=== PATIENT | male | born 1970 | race African-American/Black ===

== ENCOUNTER 2016-12-12 09:47 | Observation (INO) | payer MEDICAID ==
--- NOTE | 2016-12-12 10:09 | ER Document Report ---
ED Medical Screen (RME) - General Stated Complaint: WEAKNESS Notes: patient states that he had a syncope episode yesterday states he had a "blackout" episode yesterday, he was told he was unresponsive, urinating on himself denies previous episodes, no h/o seizure d/o I have greeted and performed a rapid initial assessment of this patient. A comprehensive ED assessment and evaluation of the patient, analysis of test results and completion of the medical decision making process will be conducted by additional ED providers. TRAVEL OUTSIDE OF THE [place] IN LAST 30 DAYS: No - Related Data Allergies/Adverse Reactions: No Known Allergies Allergy (Verified 10/30/13 13:29) Past Medical History Past Surgical History: Reports: Hx Appendectomy - Immunizations Hx Diphtheria, Pertussis, Tetanus Vaccination: Yes Physical Exam - Vital signs Vitals: Temp Pulse Resp BP Pulse Ox 98.2 F 78 16 112/64 99 12/12/16 10:04 12/12/16 10:04 12/12/16 10:04 12/12/16 10:04 12/12/16 10:04 Course - Vital Signs Vital signs: Temp Pulse Resp BP Pulse Ox 98.2 F 78 16 112/64 99 12/12/16 10:04 12/12/16 10:04 12/12/16 10:04 12/12/16 10:04 12/12/16 10:04
[2016-12-12 10:38] LABS: ABSOLUTE EOSINOPHILS # (AUTO) 0.1 10^3/uL (0.0-0.6); ABSOLUTE LYMPHOCYTES (AUTO) 0.9 10^3/uL (0.5-4.7); ABSOLUTE MONOCYTES (AUTO) 0.5 10^3/uL (0.1-1.4); ABSOLUTE NEUT (AUTO) 1.9 10^3/uL (1.7-8.2); BASOPHILS % (AUTO) 1.2 % (0-2); EOSINOPHILS % (AUTO) 2.1 % (0-6); HEMATOCRIT 38.3 % (37.9-51.0); HEMOGLOBIN 12.7 g/dL (13.5-17.0); HGB HCT DIFFERENCE -0.2; LYMPHOCYTES % (AUTO) 28.1 % (13-45); MEAN CORPUSCULAR HEMOGLOBIN 30.7 pg (27.0-33.4); MEAN CORPUSCULAR VOLUME 93 fl (80-97); MONOCYTES % (AUTO) 13.6 % (3-13); RED BLOOD COUNT 4.12 10^6/uL (4.35-5.55); RED CELL DISTRIBUTION WIDTH 13.7 % (11.5-14.0); WHITE BLOOD COUNT 3.4 10^3/uL (4.0-10.5)
[2016-12-12 11:03] LABS: ALANINE AMINOTRANSFERASE 35 U/L (21-72); ALBUMIN 3.5 g/dL (3.5-5.0); ALCOHOL 14 mg/dL (NONE DETECTED); ALKALINE PHOSPHATASE 69 U/L (38-126); ANION GAP 10 (5-19); ASPARTATE AMINO TRANSFERASE 36 U/L (17-59); BILIRUBIN,TOTAL 0.5 mg/dL (0.2-1.3); BLOOD UREA NITROGEN 10 mg/dL (7-20); CALCIUM 8.9 mg/dL (8.4-10.2); CARBON DIOXIDE 23 mmol/L (22-30); CHLORIDE 105 mmol/L (98-107); CREATINE KINASE 134 U/L (55-170); CREATININE RESULT 0.79 mg/dL (0.52-1.25); GLUCOSE 102 mg/dL (75-110); POTASSIUM 3.9 mmol/L (3.6-5.0); SODIUM 137.6 mmol/L (137-145); TOTAL PROTEIN 5.9 g/dL (6.3-8.2)
--- NOTE | 2016-12-12 11:06 | ER Document Report ---
ED General - General Time seen by provider: 11:06 TRAVEL OUTSIDE OF THE [place] IN LAST 30 DAYS: No <ADIEL LAWRENCE - Last Filed: 12/12/16 12:33> <BARBARA SILVESTRE - Last Filed: 12/12/16 21:16> - General Chief Complaint: Probable Seizure Stated Complaint: WEAKNESS - Related Data Allergies/Adverse Reactions: No Known Allergies Allergy (Verified 12/12/16 10:07) Past Medical History - Social History Smoking Status: Never Smoker Chew tobacco use (# tins/day): No Frequency of alcohol use: Heavy Drug Abuse: None Family History: Reviewed & Not Pertinent Patient has suicidal ideation: No Patient has homicidal ideation: No Renal/ Medical History: Denies: Hx Peritoneal Dialysis Psychiatric Medical History: Reports: Hx Depression Past Surgical History: Reports: Hx Appendectomy, Hx Orthopedic Surgery - left hip replacement - Immunizations Hx Diphtheria, Pertussis, Tetanus Vaccination: Yes <ADIEL LAWRENCE - Last Filed: 12/12/16 12:33> Course - Laboratory Result Diagrams: 12/12/16 10:15 12/12/16 10:15 <ADIEL LAWRENCE - Last Filed: 12/12/16 12:33> - Laboratory Result Diagrams: 12/12/16 10:15 12/12/16 10:15 <BARBARA SILVESTRE - Last Filed: 12/12/16 21:16> - Re-evaluation Re-evalutation: 12/12/16 12:32 I have consulted with the supervisory physician per [facility] Guidelines. Consult Dr. brewer who will admit to telemetry observation for syncope ( ADIEL LAWRENCE) 12/12/16 21:15 I have seen the patient and discussed the case with the mid-level provider. I agree with the plan for admission with observation for syncope. (BARBARA SILVESTRE) - Vital Signs Vital signs: Temp Pulse Resp BP Pulse Ox 98.6 F 76 20 129/80 H 98 12/12/16 16:23 12/12/16 16:42 12/12/16 16:23 12/12/16 16:00 12/12/16 16:23 (ADIEL LAWRENCE) (BARBARA SILVESTRE) - Laboratory Laboratory results interpreted by me: 12/12/16 12/12/16 10:15 10:15 WBC 3.4 L RBC 4.12 L Hgb 12.7 L Monocytes % 13.6 H Total Protein 5.9 L (ADIEL LAWRENCE) (BARBARA SILVESTRE) Discharge - Discharge Admitting Provider: Hospitalist Unit Admitted: Telemetry <ADIEL LAWRENCE - Last Filed: 12/12/16 12:33> <BARBARA SILVESTRE - Last Filed: 12/12/16 21:16> - Discharge Clinical Impression: Episode of syncope Qualifiers: Syncope type: unspecified Qualified Code(s): R55 - Syncope and collapse
[2016-12-12 11:13] LABS: CREATINE KINASE MB 0.94 ng/mL (<4.55); TROPONIN I < 0.012 ng/mL
[2016-12-12 12:03] LABS: URINE BARBITURATES SCREEN NEGATIVE; URINE METHADONE SCREEN NEGATIVE; URINE OPIATES LOW UNCONFIRMED POSITIVE; URINE PHENCYCLIDINE SCREEN NEGATIVE
[2016-12-12] MEDS ORDERED: ONDANSETRON HCL INJ/PF 4 MG/2 ML SDV IV PRN (14:48)
[2016-12-12] MEDS ORDERED: ACETAMINOPHEN 325 MG TABLET PO PRN (14:48)
[2016-12-12] MEDS ORDERED: LORAZEPAM INJ 2 MG/1 ML VIAL IV PRN (14:52)
--- NOTE | 2016-12-12 15:05 | PDOC H&P ---
History of Present Illness Admission Date/PCP: 12/12/16 12:43 FIDENCIO NICHOLAS MD Patient complains of: Syncopal episode History of Present Illness: ANTHONY DE LA TORRE is a 46 year old male, with history of heavy alcohol use, recently diagnosed with depression, started on Wellbutrin was brought to the emergency room because of the syncopal episode. Apparently the patient was just watching television when the patient started to feel uneasy. Patient reports there is blurring of vision and eventual blacking out. Patient does not remember what happened since then. Witnessed by a friend decided then, patient reportedly weighed upward rolling of the eyeballs, foaming of the mouth , urinary incontinence, and generalized shaking. No prior history of syncope nor seizure. Last intake of alcohol was early this morning. Patient had a mild headache prior to the episode otherwise no slurring of speech, swallowing difficulty, or focal weakness. The patient was then referred for admission. Past Medical History Musculoskeltal Medical History: Reports: Other - Avascular necrosis of the hip Psychiatric Medical History: Reports: Depression Past Surgical History Past Surgical History: Reports: Appendectomy, Orthopedic Surgery - left hip replacement Social History Information Source: Patient Smoking Status: Current Every Day Smoker Frequency of Alcohol Use: Heavy Hx Recreational Drug Use: Yes Drugs: Marijuana Family History Family History: DM Parental Family History Reviewed: Yes Children Family History Reviewed: Yes Sibling(s) Family History Reviewed.: Yes Medication/Allergy Home Medications: Bupropion HCl [Wellbutrin 100 mg Tablet] 100 mg PO BID 12/12/16 Meloxicam [Mobic 7.5 mg Tablet] 7.5 mg PO DAILY 12/12/16 Allergies/Adverse Reactions: No Known Allergies Allergy (Verified 12/12/16 10:07) Review of Systems Constitutional: PRESENT: headache(s). ABSENT: chills, fever(s), night sweats, weight gain, weight loss Eyes: ABSENT: visual disturbances Ears: ABSENT: hearing changes Nose, Mouth, and Throat: ABSENT: mouth pain, sore throat Cardiovascular: ABSENT: chest pain, dyspnea on exertion, edema, orthropnea, palpitations Respiratory: ABSENT: cough, hemoptysis, sputum Gastrointestinal: ABSENT: abdominal pain, constipation, diarrhea, hematemesis, hematochezia, melena, nausea, vomiting Genitourinary: ABSENT: dysuria, hematuria Musculoskeletal: ABSENT: joint swelling Integumentary: ABSENT: pruritus, rash, wounds Neurological: PRESENT: syncope. ABSENT: abnormal gait, abnormal speech, confusion, dizziness, focal weakness, restless legs Psychiatric: PRESENT: depression. ABSENT: anxiety, homidical ideation, suicidal ideation Endocrine: ABSENT: cold intolerance, heat intolerance, polydipsia, polyphagia, polyuria Hematologic/Lymphatic: ABSENT: easy bleeding, easy bruising Physical Exam Vital Signs: Temp Pulse Resp BP Pulse Ox 98.6 F 78 20 116/74 99 12/12/16 14:12 12/12/16 10:04 12/12/16 14:12 12/12/16 14:12 12/12/16 14:12 General appearance: PRESENT: no acute distress, cooperative, well-developed, well-nourished Head exam: PRESENT: atraumatic, normocephalic Eye exam: PRESENT: conjunctiva pink, EOMI, PERRLA. ABSENT: scleral icterus Ear exam: PRESENT: normal external ear exam. ABSENT: drainage Mouth exam: PRESENT: moist, neck supple, tongue midline Throat exam: PRESENT: other - No tongue laceration. ABSENT: post pharyngeal erythema, tonsillar erythema Neck exam: ABSENT: carotid bruit, JVD, lymphadenopathy, thyromegaly Respiratory exam: PRESENT: clear to auscultation torsten. ABSENT: rales, rhonchi, unlabored, wheezes Cardiovascular exam: PRESENT: RRR, +S1, +S2. ABSENT: diastolic murmur, rubs, systolic murmur Pulses: PRESENT: normal dorsalis pedis pul Vascular exam: PRESENT: normal capillary refill GI/Abdominal exam: PRESENT: normal bowel sounds, soft. ABSENT: distended, guarding, mass, organolmegaly, rebound, tenderness Rectal exam: PRESENT: deferred Extremities exam: PRESENT: full ROM. ABSENT: calf tenderness, clubbing, pedal edema Neurological exam: PRESENT: alert, awake, oriented to person, oriented to place , oriented to time, oriented to situation, CN II-XII grossly intact. ABSENT: motor sensory deficit Psychiatric exam: PRESENT: appropriate affect, normal mood. ABSENT: homicidal ideation, suicidal ideation Skin exam: PRESENT: dry, intact, warm. ABSENT: cyanosis, rash Results Impressions: Head CT 12/12/16 10:09 IMPRESSION: NORMAL BRAIN CT WITHOUT CONTRAST. Assessment & Plan - Diagnosis (1) Seizure Is this a current diagnosis for this admission?: Yes (2) Abnormal EKG Is this a current diagnosis for this admission?: Yes (3) Alcohol abuse Is this a current diagnosis for this admission?: Yes (4) Depression Qualifiers: Depression Type: unspecified Qualified Code(s): F32.9 - Major depressive disorder, single episode, unspecified Is this a current diagnosis for this admission?: Yes - Time Time Spent: 50 to 70 Minutes Within: within 24 hours - Plan Summary Plan Summary: The patient will be placed in observation. We will monitor the patient probably developed symptoms from alcohol. I will leave as needed Ativan for seizures. I will hydrate the patient with normal saline and give supplemental thiamine and folic acid, and multivitamin. We will obtain EEG and MRI of the brain. In the meantime EKG shows abnormality but patient denies any chest pain. I will put the patient on aspirin. We will serially monitor cardiac enzymes. If negative stress test can be done on an outpatient basis. Further testing depends on the initial evaluation as outlined above.
[2016-12-12] MEDS ORDERED: ASPIRIN 81 MG TABLET, CHEWABLE PO ONE (15:15)
[2016-12-12] MEDS: NORMAL SALINE 1000 ML 1,000 ML IV PRN (15:23)
[2016-12-12] MEDS ORDERED: NORMAL SALINE 1000 ML 1,000 ML with POTASSIUM CHLORIDE 20 MEQ, MAGNESIUM SULFATE 8 MEQ,... IV PRN ×5 (18:00)
[2016-12-12] MEDS: DOCUSATE SODIUM 100 MG CAPSULE PO SCH (19:35)
--- NOTE | 2016-12-13 00:07 | EKG REPORT ---
SEVERITY:- ABNORMAL ECG - SINUS RHYTHM NONSPECIFIC T ABNORMALITIES, INFERIOR LEADS : Confirmed by: Kaylee Bui 13-Dec-2016 00:06:53
--- NOTE | 2016-12-13 00:07 | EKG REPORT ---
SEVERITY:- NORMAL ECG - SINUS RHYTHM : Confirmed by: Kaylee Bui 13-Dec-2016 00:06:42
[2016-12-13 04:37] LABS: BLOOD UREA NITROGEN 8 mg/dL (7-20); CALCIUM 8.7 mg/dL (8.4-10.2); CHLORIDE 108 mmol/L (98-107); CREATININE RESULT 0.83 mg/dL (0.52-1.25); GLUCOSE 103 mg/dL (75-110); POTASSIUM 4.5 mmol/L (3.6-5.0)
[2016-12-13 04:48] LABS: ANION GAP 6 (5-19); CARBON DIOXIDE 27 mmol/L (22-30); SODIUM 141.1 mmol/L (137-145)
[2016-12-13] MEDS ORDERED: LANSOPRAZOLE 30 MG TAB.RAP.DR PO SCH (06:00)
[2016-12-13] MEDS ORDERED: ENOXAPARIN SODIUM INJ 40 MG/0.4 ML DISP.SYRIN SUBCUT SCH (08:00)
[2016-12-13] MEDS: DOCUSATE SODIUM 100 MG CAPSULE PO SCH (09:40)
[2016-12-13] MEDS ORDERED: ASPIRIN 81 MG TABLET, CHEWABLE PO SCH (10:00)
--- NOTE | 2016-12-13 11:01 | EKG REPORT ---
SEVERITY:- NORMAL ECG - SINUS RHYTHM : Confirmed by: Kaylee Bui 13-Dec-2016 11:01:19
[2016-12-13] MEDS: NORMAL SALINE 1000 ML 1,000 ML IV PRN (11:30)
--- NOTE | 2016-12-13 14:03 | PDOC DISCHARGE SUMMARY ---
General - Admit/Disc Date/PCP Admission Date/Primary Care Provider: 12/12/16 14:48 FIDENCIO NICHOLAS MD Discharge Date: 12/13/16 - Discharge Diagnosis (1) Seizure Is this a current diagnosis for this admission?: YesSummary: Patient had a syncopal episode and then a seizure. The patient been about 24 hours without any alcohol. The patient had normal MRI it's felt the seizure was most likely alcohol withdrawal related. The patient was reported that he had started Wellbutrin however he reports he has the prescription but has not yet started the medication. He is instructed to hold his Wellbutrin until he discusses it with his primary care doctor. The patient had an EEG done the results of which are pending at the time of this dictation. He's had only one seizure and no further abnormalities and is felt stable for discharge to home. (2) Alcohol abuse Is this a current diagnosis for this admission?: YesSummary: Patient is given Ativan to use when necessary. He is encouraged to stop drinking. (3) Depression Is this a current diagnosis for this admission?: YesSummary: Patient denies any suicidal ideations. He is instructed to hold his Wellbutrin and not take it until after he discuss with his primary care doctor in light of his seizure. (4) Episode of syncope Is this a current diagnosis for this admission?: YesSummary: This most likely is related to his seizure activity. MRI was unremarkable. - Additional Information Resuscitation Status: Full Code Discharge Diet: Regular Discharge Activity: Activity As Tolerated Home Medications: Meloxicam [Mobic 7.5 mg Tablet] 7.5 mg PO DAILY 12/12/16 Aspirin [Aspirin 81 mg Chewable Tablet] 81 mg PO DAILY tab.chew 12/13/16 Lorazepam 1 mg PO Q6HP PRN #30 tablet 12/13/16 History of Present Illness History of Present Illness: ANTHONY DE LA TORRE is a 46 year old male who is followed at the [place] who is being treated for depression. He was given a prescription for Wellbutrin but has not yet had it filled. The patient was sitting on the couch with his significant other and he became unresponsive and then had tonic-clonic movements along with urinary incontinence. Patient was transported the hospital for further evaluation. Hospital Course Hospital Course: Patient was admitted with what sounds like a seizure. Patient was about 24 hours after his last drink. He does drink alcohol heavily. He said no further seizure activity and no evidence for delirium tremens. He has been given Ativan when necessary. The patient had an MRI of the brain which was unremarkable. He has an EEG the results of which are pending at the time of this dictation. It is assumed that his seizure was alcohol related with alcohol withdrawal. He is instructed to quit drinking and take Ativan as needed. The patient was reportedly taking Wellbutrin have reports he was given the prescription but has not yet started the medications. I instructed him to continue to hold off on taking that medication until he can discuss it further with his primary care doctor. The patient had an EKG initially showed some nonspecific T-wave changes in inferior leads and was concerned this may represent an acute cardiac event however the patient has never had any chest pain and had negative cardiac enzymes. He is instructed to take an aspirin daily. Physical Exam Vital Signs: Temp Pulse Resp BP Pulse Ox 97.7 F 62 18 103/66 100 12/13/16 08:35 12/13/16 08:08 12/13/16 03:45 12/13/16 08:08 12/13/16 08:08 Intake & Output 12/12/16 12/13/16 12/14/16 06:59 06:59 06:59 Intake Total 200 Balance 200 Weight 57.5 kg General appearance: PRESENT: no acute distress Eye exam: PRESENT: conjunctiva pink. ABSENT: scleral icterus Ear exam: PRESENT: normal external ear exam Mouth exam: PRESENT: moist, tongue midline Neck exam: ABSENT: carotid bruit, JVD, lymphadenopathy, thyromegaly Respiratory exam: PRESENT: clear to auscultation torsten. ABSENT: rales, rhonchi, wheezes Cardiovascular exam: PRESENT: RRR. ABSENT: diastolic murmur, rubs, systolic murmur GI/Abdominal exam: PRESENT: normal bowel sounds, soft. ABSENT: distended, guarding, mass, organolmegaly, rebound, tenderness Extremities exam: ABSENT: calf tenderness, clubbing, pedal edema Neurological exam: PRESENT: alert, awake, oriented to person, oriented to place , oriented to time, oriented to situation, CN II-XII grossly intact. ABSENT: motor sensory deficit Psychiatric exam: PRESENT: appropriate affect Skin exam: PRESENT: dry, intact, warm. ABSENT: cyanosis, rash Results Laboratory Results: 12/13/16 04:10 12/13/16 04:10 Sodium 141.1 Potassium 4.5 Chloride 108 H Carbon Dioxide 27 Anion Gap 6 BUN 8 Creatinine 0.83 Est GFR ( Amer) > 60 Est GFR (Non-Af Amer) > 60 Glucose 103 Calcium 8.7 12/12/16 12/12/16 12/12/16 16:05 16:05 22:09 Creatine Kinase 96 101 Troponin I < 0.012 12/12/16 12/13/16 12/13/16 22:09 04:10 04:10 Creatine Kinase 81 Troponin I < 0.012 < 0.012 Impressions: Head MRI 12/12/16 00:00 IMPRESSION: NORMAL MRI OF THE BRAIN WITHOUT INTRAVENOUS GADOLINIUM CONTRAST. Head CT 12/12/16 10:09 IMPRESSION: NORMAL BRAIN CT WITHOUT CONTRAST. Qualifiers PATEINT BEING DISCHARGED WITH ANY OF THE FOLLOWING DIAGNOSIS?: No Plan Discharge Plan: Discharged to home. Patient will follow-up with his primary care doctor in 1-2 weeks. Time Spent: Less than 30 Minutes
[2016-12-13 14:33] VITALS: BP 108/70
--- NOTE | 2016-12-19 07:41 | EEG PRO FEE REPORT ---
EEG INTERPRETATION PATIENT NAME: ANTHONY DE LA TORRE ROOM#: [id number] ORDER#: [id number] DATE OF STUDY: 12/13/16 : 1970 REFERRING MD: GRACIELA BENZ M.D. DIAGNOSIS: Seizures MEDICATIONS: Unknown REPORT This is a 16 channel EEG recording with a channel of EKG. This is done during wakefulness, photic stimulation, and early stages of sleep. Severe artifact seen due to patient's lack of cooperation. The background activity is 7.5-8 cycles per second, well formed and reactive alpha best seen in the posterior electrodes along with beta 18-22 cycles per second, intermittent, nonlocalized or sustained slower forms. Photic stimulation did not alter the tracing significantly. In the early stages of sleep, more generalized slowing is seen. IMPRESSION This EEG contains severe artifact due to lack of cooperation from the patient. However, no epileptiform discharge is seen. INTERPRETING PHYSICIAN: TARA LEAVITT M.D. /: [facility] TT: [id number] ID: [id number] /: [id number] TD: [id number] JOB: [id number] cc:Purvi MARIA M.D. >
== END 2016-12-13 15:38 | disposition home or self-care (01) ==
LOC: ER 09:47 → UNDOADMOB 12:43 → EH 12:43 → 4S 16:38
DX: G40.909 Epilepsy, unspecified, not intractable, without status epilepticus (principal); R55 Syncope and collapse; F10.10 Alcohol abuse, uncomplicated; F32.9 Major depressive disorder, single episode, unspecified; F17.210 Nicotine dependence, cigarettes, uncomplicated; M87.9 Osteonecrosis, unspecified; Z96.642 Presence of left artificial hip joint; R94.31 Abnormal electrocardiogram [ECG] [EKG]; Z83.3 Family history of diabetes mellitus; Z79.899 Other long term (current) drug therapy; Z79.82 Long term (current) use of aspirin
CPT/HCPCS: 95819; 93005 ×2; 99285; 36415 ×2; 82553; 80307 ×2; 82550 ×2; 85025; 80048; 80053; 84484 ×2; 70551; 70450; 93010 ×2; G0378 ×3; J3490 ×3; J3475; J3480; J3411; J7030 ×2

== ENCOUNTER 2017-01-21 03:00 | Emergency (ER) | payer MEDICAID ==
[2017-01-21] MEDS ORDERED: LIDOCAINE 5% (700 MG) TRANSDERMAL ADH..PATCH TP ONE (07:15)
[2017-01-21] MEDS ORDERED: HYDROCODONE/ACETAMINOPHEN 5-325 MG TABLET PO ONE (07:15)
--- NOTE | 2017-01-21 07:23 | ER Document Report ---
ED General - General Chief Complaint: Hip Pain Stated Complaint: HIP PAIN TRAVEL OUTSIDE OF THE [place] 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 Patient also has a history of hip replacement patient denies any pain relief with medications at home. Patient denies fevers chills nausea vomiting trauma - Related Data Allergies/Adverse Reactions: No Known Allergies Allergy (Verified 12/12/16 10:07) Past Medical History - Social History Smoking Status: Current Every Day Smoker Chew tobacco use (# tins/day): No Frequency of alcohol use: Occasional Drug Abuse: Marijuana Family History: DM Patient has suicidal ideation: No Patient has homicidal ideation: No Renal/ Medical History: Denies: Hx Peritoneal Dialysis Psychiatric Medical History: Reports: Hx Depression Past Surgical History: Reports: Hx Appendectomy, Hx Orthopedic Surgery - left hip replacement - Immunizations Hx Diphtheria, Pertussis, Tetanus Vaccination: Yes Review of Systems - Review of Systems Constitutional: No symptoms reported EENT: No symptoms reported Cardiovascular: No symptoms reported Respiratory: No symptoms reported Gastrointestinal: No symptoms reported Genitourinary: No symptoms reported Male Genitourinary: No symptoms reported Musculoskeletal: Other - Left hip pain Skin: No symptoms reported Hematologic/Lymphatic: No symptoms reported Neurological/Psychological: No symptoms reported Physical Exam - Vital signs Vitals: Temp Pulse Resp BP Pulse Ox 97.3 F 81 18 119/79 99 01/21/17 03:09 01/21/17 03:09 01/21/17 03:09 01/21/17 03:09 01/21/17 03:09 Interpretation: Normal - General General appearance: Appears well, Alert - HEENT Head: Normocephalic, Atraumatic Eyes: Normal Pupils: PERRL - Respiratory Respiratory status: No respiratory distress Chest status: Nontender Breath sounds: Normal Chest palpation: Normal - Cardiovascular Rhythm: Regular Heart sounds: Normal auscultation Murmur: No - Abdominal Inspection: Normal Distension: No distension Bowel sounds: Normal Tenderness: Nontender Organomegaly: No organomegaly - Back Back: Normal, Nontender - Extremities General upper extremity: Normal inspection, Nontender, Normal color, Normal ROM , Normal temperature General lower extremity: Normal inspection, Tender - Tenderness to palpation of the left hip and left gluteal region, Normal color, Normal ROM, Normal temperature, Normal weight bearing. No: Renee's sign - Neurological Neuro grossly intact: Yes Cognition: Normal Orientation: AAOx4 [place] Coma Scale Eye Opening: Spontaneous [place] Coma Scale Verbal: Oriented [place] Coma Scale Motor: Obeys Commands [place] Coma Scale Total: 15 Speech: Normal Motor strength normal: LUE, RUE, LLE, RLE Sensory: Normal - Psychological Associated symptoms: Normal affect, Normal mood - Skin Skin Temperature: Warm Skin Moisture: Dry Skin Color: Normal Course - Re-evaluation Re-evalutation: 01/21/17 14:26 X-rays negative patient more likely has muscle skeletal strain or sprain pain medication patient will be given patient will be discharged home - Vital Signs Vital signs: Temp Pulse Resp BP Pulse Ox 98.0 F 77 16 110/71 97 01/21/17 07:50 01/21/17 07:50 01/21/17 07:50 01/21/17 07:50 01/21/17 07:50 Discharge - Discharge Clinical Impression: Hip pain Qualifiers: Laterality: left Qualified Code(s): M25.552 - Pain in left hip Condition: Stable Disposition: HOME, SELF-CARE Instructions: Arthralgia ([facility]), Myalagia (Muscle Pain) ([facility]) Additional Instructions: Follow-up with your primary care physician. Take medication as prescribed. Return to the ER if symptoms worsen. You may also try [id number] Lidoderm patches. Prescriptions: Ibuprofen [Motrin 600 mg Tablet] 600 mg PO Q8HP PRN #60 tablet PRN Reason: Hydrocodone Bit/Acetaminophen [Hydrocodon-Acetaminophen 5-325] 1 each PO Q6 #20 tablet Forms: Return to Work
[2017-01-21 07:58] VITALS: BP 110/71
== END 2017-01-21 07:58 | disposition home or self-care (01) ==
LOC: ER 03:00
DX: M25.552 Pain in left hip (principal); F17.200 Nicotine dependence, unspecified, uncomplicated; Z96.642 Presence of left artificial hip joint
CPT/HCPCS: 99283; 73502; J3490

== ENCOUNTER 2017-11-04 06:05 | Emergency (ER) | payer OTHER, MEDICAID ==
--- NOTE | 2017-11-04 06:39 | ER Document Report ---
ED General - General Chief Complaint: Psych Problem Stated Complaint: IVC WITH PAPERS Time Seen by Provider: 11/04/17 06:24 Mode of Arrival: Ambulatory Information source: Patient, Law Enforcement Notes: 47-year-old male who had a previous suicide attempt 8 years ago by drinking "poison" presents with complaints of suicidal ideation. Patient notes he has been drinking alcohol prior to work, while he was at work he sent text messages to his stating that he would see her on the other side. Patient states currently he has no suicidal ideations, states he has just been very stressful because of the holidays because everything he does is not enough. Patient has not tried to hurt himself today TRAVEL OUTSIDE OF THE [place] IN LAST 30 DAYS: No - HPI Onset: Just prior to arrival Onset/Duration: Sudden Quality of pain: No pain Severity: Mild Pain Level: Denies Associated symptoms: Other Exacerbated by: Denies Relieved by: Denies Similar symptoms previously: Yes Recently seen / treated by doctor: No - Related Data Allergies/Adverse Reactions: No Known Allergies Allergy (Verified 12/12/16 10:07) Past Medical History - Social History Smoking Status: Never Smoker Cigarette use (# per day): No Chew tobacco use (# tins/day): No Smoking Education Provided: No Family History: DM Renal/ Medical History: Denies: Hx Peritoneal Dialysis Psychiatric Medical History: Reports: Hx Depression Past Surgical History: Reports: Hx Appendectomy, Hx Orthopedic Surgery - left hip replacement - Immunizations Hx Diphtheria, Pertussis, Tetanus Vaccination: Yes Review of Systems - Review of Systems Notes: REVIEW OF SYSTEMS: CONSTITUTIONAL : Denies fever, chills, or sweats. Denies recent illness. EENT: Denies eye, ear, throat, or mouth pain or symptoms. Denies nasal or sinus congestion or discharge. Denies throat, tongue, or mouth swelling or difficulty swallowing. CARDIOVASCULAR: Denies chest pain. Denies palpitations or racing or irregular heart beat. Denies ankle edema. RESPIRATORY: Denies cough, cold, or chest congestion. Denies shortness of breath, difficulty breathing, or wheezing. GASTROINTESTINAL: Denies abdominal pain or distention. Denies nausea, vomiting , or diarrhea. Denies blood in vomitus, stools, or per rectum. Denies black, tarry stools. Denies constipation. GENITOURINARY: Denies difficulty urinating, painful urination, burning, frequency, blood in urine, or discharge. MUSCULOSKELETAL: Denies back or neck pain or stiffness. Denies joint pain or swelling. SKIN: Denies rash, lesions or sores. HEMATOLOGIC : Denies easy bruising or bleeding. LYMPHATIC: Denies swollen, enlarged glands. NEUROLOGICAL: Denies confusion or altered mental status. Denies passing out or loss of consciousness. Denies dizziness or lightheadedness. Denies headache. Denies weakness or paralysis or loss of use of either side. Denies problems with gait or speech. Denies sensory loss, numbness, or tingling. Denies seizures. PSYCHIATRIC: admits to stress suicidial ideations ALL OTHER SYSTEMS REVIEWED AND NEGATIVE. Dictation was performed using [employer] voice recognition software PHYSICAL EXAMINATION: GENERAL: Well-appearing, well-nourished and in no acute distress. alcohol on breath HEAD: Atraumatic, normocephalic. EYES: Pupils equal round and reactive to light, extraocular movements intact, sclera anicteric, conjunctiva are normal. ENT: Nares patent, oropharynx clear without exudates. Moist mucous membranes. NECK: Normal range of motion, supple without lymphadenopathy LUNGS: Breath sounds clear to auscultation bilaterally and equal. No wheezes rales or rhonchi. HEART: Regular rate and rhythm without murmurs ABDOMEN: Soft, nontender, nondistended abdomen. No guarding, no rebound. No masses appreciated. Musculoskeletal: Normal range of motion, no pitting or edema. No cyanosis. NEUROLOGICAL: Cranial nerves grossly intact. Normal speech, normal gait. Normal sensory, motor exams PSYCH: Normal mood, normal affect. SKIN: Warm, Dry, normal turgor, no rashes or lesions noted.Remorseful Physical Exam - Vital signs Vitals: Temp Pulse Resp BP Pulse Ox 98.3 F 75 16 104/57 L 99 11/04/17 06:13 11/04/17 06:13 11/04/17 06:13 11/04/17 06:13 11/04/17 06:13 Course - Re-evaluation Re-evalutation: 11/04/17 06:38 Patient appears to be intoxicated, lab work pending mental health evaluation requested 11/04/17 16:55 Mental health will observe the patient overnight, they will attempt to have the patient transferred to the [facility] - Vital Signs Vital signs: Temp Pulse Resp BP Pulse Ox 98.6 F 70 16 114/72 97 11/04/17 13:20 11/04/17 13:20 11/04/17 06:13 11/04/17 13:20 11/04/17 13:20 - Laboratory Result Diagrams: 11/04/17 06:40 11/04/17 06:40 Laboratory results interpreted by me: 11/04/17 11/04/17 06:40 06:40 WBC 3.9 L RBC 4.17 L Hgb 12.3 L Hct 36.8 L Seg Neutrophils % 31.4 L Lymphocytes % 56.3 H Absolute Neutrophils 1.2 L Sodium 145.6 H Glucose 68 L Acetaminophen < 10 L - EKG Interpretation by Me EKG shows normal: Sinus rhythm, [place], Intervals, QRS Complexes Discharge - Discharge Clinical Impression: Alcohol abuse Depression Qualifiers: Depression Type: major depressive disorder Major depression recurrence: single episode Active/Remission status: currently active Major depression episode severity: moderate Qualified Code(s): F32.1 - Major depressive disorder, single episode, moderate Condition: Stable Disposition: PSYCH HOSP/UNIT
[2017-11-04 06:52] LABS: ABSOLUTE BASOPHILS # (AUTO) 0.1 10^3/uL (0.0-0.2); ABSOLUTE EOSINOPHILS # (AUTO) 0.1 10^3/uL (0.0-0.6); ABSOLUTE LYMPHOCYTES (AUTO) 2.2 10^3/uL (0.5-4.7); ABSOLUTE MONOCYTES (AUTO) 0.4 10^3/uL (0.1-1.4); ABSOLUTE NEUT (AUTO) 1.2 10^3/uL (1.7-8.2); BASOPHILS % (AUTO) 1.3 % (0-2); EOSINOPHILS % (AUTO) 1.3 % (0-6); HEMATOCRIT 36.8 % (37.9-51.0); HEMOGLOBIN 12.3 g/dL (13.5-17.0); HGB HCT DIFFERENCE 0.1; LYMPHOCYTES % (AUTO) 56.3 % (13-45); MEAN CORPUSCULAR HEMOGLOBIN 29.4 pg (27.0-33.4); MEAN CORPUSCULAR HGB CONC 33.3 g/dL (32.0-36.0); MEAN CORPUSCULAR VOLUME 88 fl (80-97); MONOCYTES % (AUTO) 9.7 % (3-13); RED BLOOD COUNT 4.17 10^6/uL (4.35-5.55); RED CELL DISTRIBUTION WIDTH 13.8 % (11.5-14.0); SEGMENTED NEUTROPHILS % (AUTO) 31.4 % (42-78); WHITE BLOOD COUNT 3.9 10^3/uL (4.0-10.5)
[2017-11-04 07:14] LABS: ALANINE AMINOTRANSFERASE 31 U/L (21-72); ALBUMIN 4.7 g/dL (3.5-5.0); ALCOHOL 69 mg/dL (NONE DETECTED); ALKALINE PHOSPHATASE 90 U/L (38-126); ANION GAP 16 (5-19); ASPARTATE AMINO TRANSFERASE 44 U/L (17-59); BILIRUBIN,DIRECT 0.3 mg/dL (0.0-0.4); BILIRUBIN,TOTAL 0.3 mg/dL (0.2-1.3); BLOOD UREA NITROGEN 14 mg/dL (7-20); CALCIUM 9.6 mg/dL (8.4-10.2); CARBON DIOXIDE 26 mmol/L (22-30); CHLORIDE 104 mmol/L (98-107); CREATININE RESULT 0.87 mg/dL (0.52-1.25); GLUCOSE 68 mg/dL (75-110); POTASSIUM 4.2 mmol/L (3.6-5.0); SODIUM 145.6 mmol/L (137-145); TOTAL PROTEIN 7.8 g/dL (6.3-8.2)
--- NOTE | 2017-11-04 07:54 | EKG REPORT ---
SEVERITY:- NORMAL ECG - SINUS RHYTHM : Confirmed by: Néstor Lawrenec MD 04-Nov-2017 07:53:23
[2017-11-04 09:30] LABS: APPEARANCE,URINE CLEAR; BILIRUBIN,URINE NEGATIVE (NEGATIVE); GLUCOSE, URINE NEGATIVE (NEGATIVE); KETONES,URINE NEGATIVE (NEGATIVE); LEUKOCYTE ESTERASE,URINE NEGATIVE (NEGATIVE); NITRITE,URINE NEGATIVE (NEGATIVE); PROTEIN,URINE NEGATIVE (NEGATIVE); URINE SPECIFIC GRAVITY 1.017; UROBILINOGEN,URINE NEGATIVE mg/dL (<2.0)
[2017-11-04 09:52] LABS: URINE BARBITURATES SCREEN NEGATIVE; URINE METHADONE SCREEN NEGATIVE; URINE OPIATES LOW NEGATIVE; URINE PHENCYCLIDINE SCREEN NEGATIVE
--- NOTE | 2017-11-04 15:59 | PSYCHOLOGICAL NOTE ---
Psych Note - Psych Note Psych Note: * Reason for Consult: IVC, Suicidal Ideation * Consent permissions: 47-year-old male who had a previous suicide attempt 8 years ago by drinking "poison" presents with complaints of suicidal ideation. Patient notes he has been drinking alcohol prior to work, while he was at work he sent text messages to his stating that he would see her on the other side. Patient states currently he has no suicidal ideations, states he has just been very stressful because of the holidays because everything he does is not enough. Patient has not tried to hurt himself today. Patient disclosed he was "just stressed out....I'm just depressed." He continued to state that he is diagnosis with major depression and confirms he attempted suicide about 7 years ago. He drank Bug-be-gone or [id number], he unsure which only that it was " something be gone." He does take medications; however, is not consistent; "ya, I take it sometimes." He goes to [facility] in [place] and missed an appointment on the , his next appointment is 2017. He reports he was "out of town on his truck." Patient's , Nolan [phone], disclosed that she called to get help for her . She states that been for 5 years and this is the first time he is ever threatened to kill himself. She continued disclosed that last Monday a CPS report was open on them. She also states that the patient was just caught recently cheating. She states she loves her and has "just need to come to terms with this is a man I ." She states that she is concerned he will hurt himself. She has heard rumors that he may be doing crack cocaine but is unsure. She reports the patient has diagnosis of major depression, PTSD, and anxiety. She reports the patient receives outpatient mental health through the [facility]. Patient is alert and orientated to person, place, time and circumstance. Mood is dysphoric with flat affect. Patient denies current suicidal ideation and admits to sending suicidal comments to his and being "stressed out and depressed." Patient denies auditory visual hallucinations. Delusions are absent and behaviors congruent with intact reality based presentation i.e. organized, linear thinking. Eye contact was poor. Conversational speech is low. Intellectual abilities appears to be within the average range. Attention and concentration is fair. Insight, judgment, impulse control is poor. 296.30 (F33.9) major depressive disorder; recurrent episode, unspecified per history provided by patient and family 209.81 (F43.10) posttraumatic stress disorder per history provided by patient's family 292.9 (F14.99) unspecified stimulant related disorder; cocaine Impression\\plan: Patient is recommended to continue under IVC. Patient currently is demonstrating dysphoric mood with flat affect. While patient denies current suicidal ideation patient admits to suicidal comments. With the patient's history of suicide attempt, being noncompliant on his medications, and engaging in high risk activity the patient is currently a danger to himself. Will be reevaluated. Dr. Soliz was consulted and the care and management of this patient; attending physician is in agreement with her conditions and disposition.
[2017-11-04] MEDS ORDERED: CLONIDINE HCL 0.1 MG TABLET PO SCH (17:15)
[2017-11-04] MEDS: CLONIDINE HCL 0.1 MG TABLET PO SCH (17:56)
--- NOTE | 2017-11-05 09:09 | PSYCHOLOGICAL NOTE ---
Psych Note - Psych Note Psych Note: Reason for Consult: IVC, Suicidal Ideation and Substance Use (Cocaine) Consent permission: Nolan () [phone] Per Patient, can be contacted about disposition/transportation and medications administered in the hospital Patient was seen for re-evaluation of suicidal ideation and substance use. Patient denied suicidal ideation at this time. He stated he was "stressed out" when he texted his , prior to admission to the ED, because they were arguing and he made statements he did not intend to follow through on at the time. He indicated he was at work when he made the suicidal statements and he would not have followed through because he was working with someone and they would not have let him hurt himself. Patient reported he and his argue frequently but he is able to go home to [place] if the arguing becomes too much for him to handle. Patient reported he has an upcoming appointment at the [facility] with Dr. Ridley on 11/24/2017. He stated he missed his last appointment due to car troubles. Provider asked about patient having knowledge of local mobile crisis providers in the event he was unable to get in to see [facility] during a crisis. Patient reported he did not have those contact numbers. Provider will give patient [facility] contact information prior to discharge. Provider asked patient about treatment for substance use and patient indicated he did not want treatment. He reported he was around people who were using and made the choice to use with them. He indicated he has gone to treatment previously and was not interested in ongoing treatment at this time. Patient was alert and oriented to person, place, time and circumstance. Mood was subdued and affect was flat. Thought processes were linear, rational and organized. No delusions were noted. Conversation speech was within normal limits for rate and prosody but low in tone. Intellectual abilities were estimated within the average range. Attention and concentration were within normal limits. Insight, judgment and impulse control were poor. Patient denied suicidal ideation and insisted he made the suicidal statements to his due to stress and being frustrated. 1. 296.30 (F33.9) Major Depressive Disorder; recurrent episode, unspecified per history, provided by patient and family 2. 209.81 (F43.10) Posttraumatic Stress Disorder per history, provided by patient's family 3. 292.9 (F14.99) Unspecified Stimulant Related Disorder; Cocaine Impression/Plan: Patient is psychiatrically clear for discharge. Recommend rescind of IVC. Patient no longer meets criteria of NCGS 122C. Patient denies suicidal/homicidal ideation, intent or plan. No psychosis noted. Patient reported [facility] Rid[facility]. Provided patient with outpatient resources with Mobile Crisis contact information highlighted. Included in plan of care as patient agreed she could be informed of disposition, transportation and medications administered in the hospital.
--- NOTE | 2017-11-05 09:54 | ER Document Report ---
Doctor's Note Notes: 11/05/17 09:52 Medical rounds: Chart reviewed and patient interviewed briefly. Vital signs are stable. Laboratory values are satisfactory. Patient denies any somatic complaints. Denies suicidal ideation. He has been deemed psychiatrically stable by the psychosocial evaluation team. Accordingly, he will be discharged to home with instructions to follow-up with his behavioral health provider on November 24. Additionally, he will be begun on clonidine 0.1 mg every 8 hours. He is encouraged to return promptly or contact mobile crisis if any problems arise.
[2017-11-05 10:16] VITALS: BP 112/66
[2017-11-05] MEDS: CLONIDINE HCL 0.1 MG TABLET PO SCH (10:23)
== END 2017-11-05 11:51 | disposition home or self-care (01) ==
LOC: ER 06:05
DX: F32.1 Major depressive disorder, single episode, moderate (principal); F10.10 Alcohol abuse, uncomplicated; F14.10 Cocaine abuse, uncomplicated; R45.851 Suicidal ideations; Z91.5 Personal history of self-harm
CPT/HCPCS: 36415; 80053; 80307; 81001; 85025; 93005; 93010; 99285